=== PATIENT | female | born 1990 | race Caucasian/White ===

== ENCOUNTER 2019-02-13 06:50 | Inpatient (IN) | payer OTHER ==
[2019-02-13] VITALS (15 sets, daily range): BP systolic 88–117; BP diastolic 50–83
[~2019-02-13] VITALS: Ht 152.4 cm; Wt 53.8 kg
[~2019-02-13 06:50] MED LIST: IBUPROFEN600 MG ORAL; ROXICODONE5 MG ORAL
[2019-02-13] MEDS ORDERED: Vancomycin 1gm/D5W 275ml IVPB ONE ×2 (07:00)
[2019-02-13] MEDS ORDERED: ceFAZolin sod 2 GM in D5W 110 ML IVPB SCH (07:00)
--- NOTE | 2019-02-13 07:19 | Pre-Procedure Note/Attestation ---
Pre-Procedure Note/Attestation Complete Prior to Procedure Planned Procedure: not applicable Procedure Narrative: L5S1 Anterior lumbar interbody fusion with bone morphogenetic protein and allograft Indications for Procedure Pre-Operative Diagnosis: L5S1 herniation Attestation I attest that I discussed the nature of the procedure; its benefits; risks and complications; and alternatives (and the risks and benefits of such alternatives ), prior to the procedure, with the patient (or the patient's legal abrasives sales representative). I attest that, if there was a reasonable possibility of needing a blood transfusion, the patient (or the patient's legal abrasives sales representative) was given the [facility] standardized written summary, pursuant to the [place] Blood Safety Act ([place] Health and Safety Code # 1645, as amended). I attest that I re-evaluated the patient just prior to the surgery and that there has been no change in the patient's H&P, except as documented below: Stalin Raya MD Feb 13, 2019 07:19
--- NOTE | 2019-02-13 07:20 | Brief Operative Note ---
Immediate Post Operative Note Operative Note Chief Complaint: back pain and radiculopathy Pre-op Diagnosis: L5S1 herniation Procedure: L5S1 Anterior lumbar interbody fusion with bone morphogenetic protein and allograft Post-op Diagnosis: same as pre-op Findings: consistent w/pre-op dx studies Surgeon: Dorota Final Inspector: Sonya Additional Surgeons: Daniel Anesthesiologist: CATHI Anesthesia: general Specimen: none Complications: none Condition: stable Fluids: ivf Estimated Blood Loss: minimal Drains: none Implant(s) used?: Yes - Nuvasive Brigade [id number] Stalin Raya MD Feb 13, 2019 07:20
[2019-02-13] MEDS ORDERED: HYDROcodone/Acetamin 7.5/325 tab ORAL PRN (07:30)
[2019-02-13] MEDS ORDERED: Morphine Sulfate 2mg/ml Inj(IV/IM USE ONLY) IV PRN (07:30)
[2019-02-13] MEDS ORDERED: HYDROcodone/Acetamin 5/325 tab ORAL PRN (07:30)
[2019-02-13] MEDS ORDERED: Metoclopramide 10mg/2ml Inj IVP PRN ×2 (07:30→10:30)
[2019-02-13] MEDS ORDERED: Naloxone 0.4mg/ml Inj IVP PRN (07:30)
[2019-02-13] MEDS ORDERED: Milk of Magnesia 30ml Ud ORAL PRN (07:30)
[2019-02-13] MEDS ORDERED: CRANBERRY200 M1 PO (07:43)
[2019-02-13] MEDS ORDERED: FIBER GUMMIES1 EACH PO (07:43)
[2019-02-13] MEDS ORDERED: Midazolam 2mg/2ml Inj ONE (08:16)
[2019-02-13] MEDS ORDERED: fentaNYL 100 mcg/2 mL IV ONE (08:16)
[2019-02-13] MEDS ORDERED: Lidocaine 1% MPF 10mg/ml 5ml ONE (08:25)
[2019-02-13] MEDS ORDERED: Heparin 5000 units/ml inj SUBQ ONE (09:00)
[2019-02-13] MEDS ORDERED: Thrombin 5000 units TOPIC ONE (09:00)
[2019-02-13] MEDS ORDERED: Gelfoam Size TOPIC ONE (09:00)
[2019-02-13] MEDS ORDERED: Bacitracin 50000 Units Vial IRRIG ONE (09:00)
[2019-02-13] MEDS ORDERED: Propofol 200mg/20ml IV ONE (09:12)
[2019-02-13] MEDS ORDERED: LR 1000ml ONE (10:04)
[2019-02-13] MEDS ORDERED: NS 500ML ONE (10:04)
[2019-02-13] MEDS ORDERED: NS Irrig 1000ml ONE (10:04)
[2019-02-13] MEDS ORDERED: Sterile Water Irrig 1000ml IRRIG ONE (10:04)
--- NOTE | 2019-02-13 10:23 | Anethesia Preoperative Eval ---
Anesthesia Pre-op PMH/ROS General Date of Evaluation: Feb 13, 2019 Time of Evaluation: 09:15 Anesthesiologist: Sheila ASA Score: ASA 2 Mallampati Score Class I : Soft palate, uvula, fauces, pillars visible Class II: Soft palate, uvula, fauces visible Class III: Soft palate, base of uvula visible Class IV: Only hard plate visible Mallampati Classification: Class II Surgeon: Dorota Diagnosis: Lumbar radiculopathy Surgical Procedure: Anterior discectomy fusion L5-S1 Anesthesia History: none Family History: no anesthesia problems Allergies: Coded Allergies: PENICILLINS (Verified Allergy, Severe, 02/13/19) LIPS SWELL UP, GETS BUMPS ON THE HANDS Medications: see eMAR Patient NPO?: Yes NPO Date: Feb 12, 2019 NPO Time: 2100 Past Medical History Cardiovascular: Denies: HTN, CAD, TN, valve dz, arrhythmia, other Pulmonary: Denies: asthma, COPD, PETRA, other Gastrointestinal/Genitourinary: Reports: GERD - mildf; Denies: CRI, ESRD, other Neurologic/Psychiatric: Reports: depression/anxiety, other - chronic pain; Denies: dementia, CVA, TIA Endocrine: Denies: DM, hypothyroidism, steroids, other HEENT: Denies: cataract (L), cataract (R), glaucoma, AFOGNAK (L), AFOGNAK (R), other Hematology/Immune: Denies: anemia, DVT, bleeding disorder, other Musculoskeletal/Integumentary: Denies: OA, RA, DJD, DDD, edema, other PMH Narrative: as above PSxH Narrative: Epidural injections , lumbar discogram Anesthesia Pre-op Phys. Exam Physician Exam Last Vital Signs Date Time Temp Pulse Resp B/P (MAP) Pulse Ox O2 Delivery O2 Flow Rate FiO2 02/13/19 07:24 Room Air 02/13/19 07:23 97.2 58 18 95/62 (73) 99 Constitutional: NAD Neurologic: CN 2-12 intact Cardiovascular: RRR, no M/R/G Respiratory: CTA Gastrointestinal: S/NT/ND Airway Exam Mallampati Score: Class II MO: full Neck: flexible ROM: full Teeth: intact Dentures: no upper, no lower Anesthesia Pre-op A/P Labs see chart Urine Test Test 02/13/19 07:00 Urine HCG, Qualitative Negative (NEGATIVE) Studies Pre-op Studies: EKG - NSR Risk Assessment & Plan Assessment: ASA 2 Plan: GA with ETT Status Change Before Surgery: No Pre-Antibiotics Drug: Vancomycin 500 mg Given Within 1 Hr of Incision: Yes Time Given: 10:12 Rj Sosa MD Feb 13, 2019 10:23
[2019-02-13] MEDS ORDERED: LR 1000ml 1,000 ML IVLG SCH (10:24)
[2019-02-13] MEDS ORDERED: DiphenhydrAMINE 50mg/ml Inj IVP PRN (10:30)
[2019-02-13] MEDS ORDERED: Hydromorphone 0.5mg/0.5ml inj IVP PRN (10:30)
[2019-02-13] MEDS ORDERED: Acetaminophen (Non formulary) 100 ML IV ONE (10:30)
[2019-02-13] MEDS ORDERED: Meperidine 50mg/ml Inj(FOR RIGORS ONLY) IV PRN (10:30)
[2019-02-13] MEDS ORDERED: Ketorolac 30mg Inj IV PRN (10:30)
[2019-02-13] MEDS ORDERED: Bupivacaine w/Epi 0.5% 30ml Vial INJ ONE (11:00)
[2019-02-13] MEDS ORDERED: Glycopyrrolate 0.2mg/ml 1ml Vial ONE (11:21)
[2019-02-13] MEDS ORDERED: Ketorolac 30mg Inj ONE (11:21)
--- NOTE | 2019-02-13 12:02 | Immediate Post-Op Evaluation ---
Immediate Post-Op Evalulation Immediate Post-Op Evalulation Procedure: L5-S1 anterior discectomy interbody fusion Date of Evaluation: Feb 13, 2019 Time of Evaluation: 12:01 IV Fluids: 1000 Blood Products: n0ne Estimated Blood Loss: 50 Urinary Output: 100 Blood Pressure Systolic: 98 Blood Pressure Diastolic: 53 Pulse Rate: 92 Respiratory Rate: 20 O2 Sat by Pulse Oximetry: 98 Temperature (Fahrenheit): 97.5 Pain Score (1-10): 2 Nausea: No Vomiting: No Complications none Patient Status: reacts, patent, extubated, none Hydration Status: adequate Rj Sosa MD Feb 13, 2019 12:02
[2019-02-13] MEDS: Midazolam 2mg/2ml Inj IVP PRN ×2 (12:11→12:46)
--- NOTE | 2019-02-13 12:42 | Diagnostic Imaging Report ---
INDICATION: Pain, intraoperative TECHNIQUE: Intraoperative imaging Fluoroscopy time: 17 seconds Total dose: 0.31504 mGym2 Total number of images: 3 COMPARISON: None FINDINGS: Intraoperative images document surgical tools projected anterior to what are presumably L3, L5, and L5-S1 disc. Subsequent images document anterior fusion at L5-S1 IMPRESSION: Intraoperative imaging, as described
--- NOTE | 2019-02-13 13:50 | NUR ---
NURSE NOTES: REC'D FROM PACU SP ALIF L5-S1 WITH ALLOGRAFT. AWAKE/ALERT. IV INFUSING. V/S TAKEN. PAIN SCALE 6/10. ABDOMINAL DRESSING DRY AND INTACT ICE PACOK ON. ABLE TO MOVE BOTH BLE AND BUE. NO NUMBNESS/TINGLING BLE AND BOTH HANDS. IN NO DISTRESS.
[2019-02-13] MEDS ORDERED: Chloraseptic Spray 20mL Bottle ORAL PRN (14:02)
[2019-02-13] MEDS: Morphine Sulfate 4mg/ml Inj (IV USE ONLY) IV PRN ×2 (14:30→20:44)
[2019-02-13] MEDS: NS w/KCl 20mEq 1000ml 1,000 ML IV SCH (14:48)
[2019-02-13] MEDS ORDERED: LR 1000ml IV ONE (16:00)
[2019-02-13] MEDS ORDERED: LR 1000ml 1,000 ML IV SCH (16:00)
--- NOTE | 2019-02-13 16:20 | NUR ---
NURSE NOTES: DR Lenora JAMES NOTIFIED OF PT BACK FROM SURGERY. MADE AWARE OF THE BP 88/57. LR BOLUS INFUSING PER DR KERR ORDER.
--- NOTE | 2019-02-13 17:00 | Operative Note - Dictated ---
DATE OF OPERATION: 02/13/2019 SURGEONS: 1. Nas Hassan M.D. (for the approach). 2. Stalin Raya M.D. (for the spine procedure). ANESTHESIOLOGIST: Rj Sosa M.D. ANESTHESIA: General endotracheal. PREOPERATIVE DIAGNOSIS: Disk disease at L5-S1 (1 interspace). POSTOPERATIVE DIAGNOSIS: Disk disease at L5-S1 (1 interspace). OPERATIVE PROCEDURE: 1. Muscle sparing, anterior abdominal extraperitoneal approach for anterior lumbar interbody fusion of L5-S1 (1 interspace). 2. Mobilization of left iliac artery. 3. Mobilization of left iliac vein. 4. Exposure of the anterior surface of the spine at L5-S1 (1 interspace). INFORMED CONSENT: The procedure of anterior access for an anterior lumbar interbody fusion was explained in detail to the patient preoperatively via the phone and then repeated in the preoperative holding area on the day of surgery by Dr. Raya and myself. The risks including hemorrhage, infection, vascular injury, ureteral injury, visceral injury, nerve injury, and lymphedema were explained in detail to the patient. The patient stated that she understood the procedure, its rationale and risks. She stated that she had no further questions and accepted the procedures outlined above. Background information, indications for surgery, description of operative findings and specimens removed will be contained in Dr. Raya's operative report. FINDINGS PERTINENT TO THE APPROACH: All retroperitoneal structures were normal. OPERATIVE PROCEDURE: The patient was brought to the operating room in stable condition. Monitoring was instituted with arterial line, ECG, O2 saturation monitor, and blood pressure cuff. A pulse oximeter was placed on the left foot to monitor circulation to the left lower extremity. The patient was induced with anesthesia without any difficulty. The patient was prepared and draped in sterile fashion. Using x-ray and fluoroscopy, the level of the L5-S1 disk was marked on the skin. A left lower quadrant transverse incision was performed from the midline to the edge of the rectus muscle starting approximately one-third of the way between the pubis and umbilicus. The incision was carried down through the subcutaneous tissue to the rectus fascia. The rectus fascia was incised with cautery with extension into the fibers of the external oblique aponeurosis. Elevation of the rectus fascia away from the anterior surface of the muscle was carried out for approximately 5 centimeters, both cephalad and caudad. This allowed for retraction of the rectus muscle both medially and laterally to obtain direct A-P access to the spine. The inferior epigastric vessels were identified and preserved. The transversalis fascia was entered exposing the retroperitoneum. The peritoneum was bluntly dissected away from the undersurface of the internal oblique muscle. Careful blunt dissection was used to elevate the peritoneum anteriorly until the psoas muscle was identified. The ureter was also identified and swept upwards with the peritoneum and its contents. Further dissection was used to expose the anterior surface of the left common iliac artery. A Cline retractor was placed into the retroperitoneum, lateral to the rectus muscle. A lap sponge was inserted over the psoas muscle and pushed superiorly to keep the abdominal contents out of the way with a [place] retractor. Careful sharp and blunt dissection was used to expose the entire length of the common iliac artery to its origin at the aortic bifurcation. Dissection along the medial wall of the artery was carried out to expose the left common iliac vein, which lies under and slightly to the right of the artery. With extreme care, the vein was exposed in its entirety and deep dissection carried out to expose the L5-S1 disk space. The middle sacral vessels were carefully ligated and cauterized proximally and distally and transected. Any other venous tributaries in the area were controlled with clips and/or cautery and transected. Mobilization of the iliac vessels below the bifurcation was carried out for proper visualization of the anterior surface of the spine. This was done with careful blunt dissection to peel away the left common iliac vein from the anterior longitudinal ligament to which it was very closely approximated. This dissection along the anterior surface of the spine was carried out bluntly without the use of cautery to preserve the sympathetic plexus, which lies anteriorly overlying the aortic bifurcation and extends inferiorly towards the sacral hollow. After proper skeletonization and mobilization of the vessels and preservation of all vital structures, the Cline-Northfield retractor system was removed and a table held retractor system was deployed. The retractor blades were inserted with the rectus muscle now retracted laterally, first on the right to expose that side of the disk space and then on the left to keep the iliac vessels out of the way. A third retractor blade was placed inferiorly. The midline and the level was confirmed by placing a needle into the disk and using fluoroscopy. A 4th superior retractor blade was placed. This allowed complete exposure and direct A-P approach to the anterior surface of the spine at L5-S1. Dr. Raya proceeded to perform the diskectomy, partial vertebrectomy, and fusion using the appropriate technique and hardware. After the diskectomy, vertebrectomy, and fusion was completed, irrigation with antibiotic solution was carried out. Retractor blades were removed and the integrity of the iliac vessels was checked to make sure that there was no tear or thrombosis of the vein and that there was adequate flow through the artery, with no evidence of spasm or thrombosis. A further check for hemostasis was made and the integrity of the ureter was verified. The perineum was allowed to return to its normal anatomic position. The anterior rectus sheath was closed with a continuous suture of #1 Vicryl. A subcuticular/subdermal suture of continuous 2-0 Vicryl was used to approximate subcutaneous tissue and skin. Dermabond surgical adhesive and a sterile dressing was applied. Manual and visual sweeps were correct. Final sponge, needle, and instrument counts were verified as correct x2. Estimated blood loss from the procedure was minimal and approximately 15 mL. There were excellent dorsalis pedis and posterior tibial pulses in both feet. There was 100% oxygen saturation with a triphasic waveform on the left foot pulse oximeter, consistent with preoperative baseline. The patient was taken from the operating room to the recovery room in stable condition, awakening from anesthesia. Nas Hassan M.D. DR: EARNESTINE JOB#: [id number] CC: Stalin Raya M.D.; Fax#: [phone] [facility]
[2019-02-13] MEDS: HYDROmorphone 1mg/ml Carpuject IVP PRN ×2 (17:08→22:50)
[2019-02-13] MEDS: Docusate 100mg cap ORAL SCH (17:47)
[2019-02-13] MEDS: Docusate Sod/Senna tab ORAL SCH (17:47)
[2019-02-13] MEDS: Dexamethasone 4mg/ml vial IVP SCH (17:47)
--- NOTE | 2019-02-13 19:00 | NUR ---
NURSE NOTES: RESTING IN BED. IN NO APPARENT DISTRESS.
--- NOTE | 2019-02-13 19:33 | NUR ---
HAND-OFF: Report given to Cassia BENTON RN.
--- NOTE | 2019-02-13 19:35 | NUR ---
NURSE NOTES: Received report from Ciarra Gonsalez RN. Patient resting in bed. Alert, oriented. Family at bedside. Bed in low position, locked, side rails up x2, call light within reach. Abdominal dressing clean and intact. IV in L hand, patient complains of discomfort in L hand. IV site intact, no redness at site, patent and flowing well. Repositioned arm, elevated on pillow. Encouraged to call if discomfort continues.
--- NOTE | 2019-02-13 20:45 | Operative Note - Dictated ---
DATE OF OPERATION: 02/13/2019 SURGEON: Stalin Raya M.D., Orthopaedic Spine Surgeon. EXPOSURE SURGEON: Nas Hassan M.D. GM VIDEO SURGEON: García Sanchez M.D. ANESTHESIA: General endotracheal anesthesia. PREOPERATIVE DIAGNOSES: 1. Intractable back pain. 2. Intractable leg pain. 3. Worsening radiculopathy. 4. Weakness. 5. Herniated nucleus pulposus, L5-S1 herniation. 6. Neural foraminal stenosis, L5-S1 herniation. POSTOPERATIVE DIAGNOSES: 1. Intractable back pain. 2. Intractable leg pain. 3. Worsening radiculopathy. 4. Weakness. 5. Herniated nucleus pulposus, L5-S1 herniation. 6. Neural foraminal stenosis, L5-S1 herniation. PROCEDURES PERFORMED: 1. Radical anterior lumbar intervertebral L5-S1 discectomy. 2. Anterior lumbar interbody fusion using NuVasive Brigade PEEK cage size #12 mm height and bone morphogenetic protein with 5 mL of allograft [place] bone putty. 3. Anterior lumbar plating and fixation at L5-S1 using #4 screws, #2 screws were 25 mm and #2 screws were 27.5 mm. 4. Anterior retroperitoneal exposure. 5. Supervision and interpretation of intraoperative fluoroscopy. 6. Supervision and interpretation of somatosensory-evoked potential and free running EMG monitoring. ESTIMATED BLOOD LOSS: 150 mL. COMPLICATIONS: None. INDICATIONS FOR THE PROCEDURE: The patient is a 29-year-old female who presents for intractable back pain and radiculopathy, which is well documented in our clinical chart and records. We had a long discussion with Pepper regarding definitive surgical treatment options. We had a long discussion with the patient regarding the risks, alternatives, and benefits of procedure. Our description of the risks included a discussion in person as well as a signed consent, which detailed all pertinent risks and the procedure itself. Briefly, our discussion included but was not limited to infection, bleeding, pseudarthrosis, spinal cord injury, neurovascular injury, dural tear, CSF leak, neuropathy, paralysis, permanent weakness/drop foot, paresthesias, blindness, palsy, and weakness. The patient understood there may be a need for revision surgery or additional procedures. Approach-related complications including dysphonia, dysphagia, blindness, permanent vocal cord and neural injury, hematoma, swallowing and breathing difficulty; medical complications including liver, kidney, shock, and cardiopulmonary failure; anesthesia complications including , swelling, damage to the musculature, larynx, esophagus, trachea, blood vessels and muscles and lungs during this surgical procedure. Injury to deeper structures may be temporary or permanent. The patient understood these and elected to proceed. A written and verbal consent was given. We discussed the pros and cons of all the alternatives. We discussed the uncertainties associated with the decision. Afterwards I assessed the patients understanding and explored their preferences. All questions were answered and no guarantees were given. Medical clearance was obtained prior to surgery. INTRAOPERATIVE FINDINGS: At L5-S1, there was a tear noted in the posterior longitudinal ligament. This tear was approximately 35 degrees on the left margin of the PLL itself. Through this, there was noted the egress of nuclear tissue, which had migrated posteriorly and was removed carefully with a combination of Kerrison rongeurs and pituitaries until all the pressure on the posterior thecal sac and neural foramina was decompressed. The disc itself was collapsed. It had decreased nuclear tissue as I would usually expect in someone of this age, however, this was not present. There was a soft characteristic to the disc, which was not calcified, which would also be expected in a calcified disc with a degenerative process. The disc itself was removed with all pressure was removed posteriorly as well throughout the posterior remnants. DESCRIPTION OF PROCEDURE: Under the benefit of general endotracheal anesthesia and with the assistance of the entire operative team, the patient was moved from the [facility] onto the operative table in the supine position on a radiolucent frame. The head was secured and positioned appropriately. Bilateral arms were secured with Gel Pads and foam and all bony prominences were padded. The bilateral lower extremity SCD and NARESH hose were placed for DVT prophylaxis. A surgical timeout was called which corroborated our planned procedure. Preoperative antibiotics were administered within 30 minutes of the incision for prophylaxis. Using lateral radiography, the operative level was delineated. An incision was marked based on our interpretation of lateral radiography and afterwards the body was prepped and draped in the usual sterile manner. The family was notified that we were ready to commence surgery and were called in the waiting room hourly for updates. An incision was based on our lateral fluoroscopic image to center the incision at the L5-S1 interspace. The wound was prepped and draped in the usual sterile fashion. Using a scalpel, a standard retroperitoneal exposure was performed by our vascular surgeon, Dr. Nas Hassan, and this is delineated in a separate operative note. After appropriate exposure at the L5-S1 disc space, we next turned our attention towards our radical discectomy. This was performed in standard fashion first beginning with a gentle mobilization of all superficial soft tissue overlying the disc space with Kittners. After this was performed, we marked our midline and confirmed our disc space on AP and lateral fluoroscopy. Next, using a 10 blade long-handled scalpel, the disc was resected from the endplates in a box discectomy technique. Next, using Schwab elevators, the disc was mobilized off each endplate. After this, using a large [place]ell rongeurs, the entire disc was removed from the intervertebral space. All residual disc and cartilaginous endplates were resected using a combination of small and medium curettage, pituitaries, size 4 and size 6 Kerrison rongeurs. Next, the endplates were distracted in a parallel fashion using the [place]ino director of design and a 7.5 Thandle. At this point, the PLL was resected using a small curette and a Kerrison 4 rongeur. At L5-S1, there was a tear noted in the posterior longitudinal ligament. This tear was approximately 35 degrees on the left margin of the PLL itself. Through this, there was noted the egress of nuclear tissue, which had migrated posteriorly and was removed carefully with a combination of Kerrison rongeurs and pituitaries until all the pressure on the posterior thecal sac and neural foramina was decompressed. The disc itself was collapsed. It had decreased nuclear tissue as I would usually expect in someone of this age, however, this was not present. The disc itself was removed with all pressure was removed posteriorly as well throughout the posterior remnants.Next, the endplates were resected down to bleeding subchondral bone using a ring and box curette. For any residual bleeding which we encountered at this point, this was maintained and controlled with a combination of FloSeal, Gelfoam, and bipolar cautery. Afterwards, Tisseel was used to seal the discectomy site dorsally. Next, I then trialed the interspace for height, width, and depth. This was confirmed on fluoroscopy and once satisfied with our fit, we loaded and inserted a NuVasive Brigade PEEK cage size #12 mm height with bone morphogenetic protein and with 5 mL of allograft [place] bone putty under AP and lateral fluoroscopy. AP and lateral fluoroscopy confirmed excellent placement at the L5-S1 interspace. Afterwards, we turned our attention towards plating from the NuVasive Brigade Interlock system. This anterior lumbar plating and fixation at L5-S1 using #4 screws, #2 screws of 25 mm and #2 screws of 27.5 mm length. Final radiographs confirmed appropriate placement of all hardware, screws, and our PEEK cage along with a jewish of the lumbar lordosis. Afterwards, Tisseel was used to seal the discectomy site ventrally. FloSeal and Zosyn antibiotics were placed directly on the anterior fusion site. The wounds were copiously irrigated with antibiotic-impregnated saline. Afterwards, FloSeal was placed to address residual bleeding. Powdered antibiotics were directly poured into the wound to provide for direct antibiosis. Next, I turned my attention to closure. Fascial closure was performed with 1-0 Vicryl suture. Subcutaneous tissues were reapproximated with 2-0 Vicryl. The superficial subcutaneous skin was closed with a running Monocryl and Dermabond. Dressings consisted of Tegaderm and 4 x 4 gauze. The patient tolerated the procedure well. The details of the surgery were related to the patients family/representatives upon the conclusion of the procedure in the family waiting room. Stalin Raya M.D. DR: Carmen JOB#: [id number] CC: SALAZAR
--- NOTE | 2019-02-13 21:42 | Cardiology Progress Note ---
Assessment/Plan Assessment/Plan [id number] chronic low bp is on ivf already otherwise looks good tsh and cortisol ordered for am Objective Last 24 Hour Vital Signs Date Time Temp Pulse Resp B/P (MAP) Pulse Ox O2 Delivery O2 Flow Rate FiO2 02/13/19 17:38 97.4 02/13/19 17:00 68 117/66 (83) 02/13/19 15:30 97.4 64 20 88/57 (67) 02/13/19 15:30 69 20 98/59 (72) 02/13/19 14:30 97.5 61 18 90/53 (65) 100 02/13/19 13:50 97.4 81 20 105/69 (81) 100 02/13/19 13:50 Nasal Cannula 3.0 02/13/19 13:45 97.5 78 18 95/55 100 Nasal Cannula 3 02/13/19 13:30 72 15 90/58 100 Nasal Cannula 3 02/13/19 13:15 69 13 91/50 100 Nasal Cannula 3 02/13/19 13:00 75 15 105/66 100 Nasal Cannula 3 02/13/19 12:45 75 16 95/65 100 Nasal Cannula 3 02/13/19 12:38 97.9 02/13/19 12:38 97.9 02/13/19 12:38 97.9 02/13/19 12:38 97.9 02/13/19 12:30 69 15 92/62 100 Nasal Cannula 3 02/13/19 12:20 77 17 99/59 100 Simple Mask 6 02/13/19 12:10 79 18 92/50 100 Simple Mask 6 02/13/19 12:02 92 20 98 02/13/19 11:57 97.8 86 20 98/52 100 Simple Mask 6 02/13/19 07:24 Room Air 02/13/19 07:23 97.2 58 18 95/62 (73) 99 Laboratory Tests Test 02/13/19 07:00 Urine HCG, Qualitative Negative (NEGATIVE) Kam Phillips MD Feb 13, 2019 21:42
[2019-02-13] MEDS: Vancomycin 1 GM in D5W 275 ML IVPB SCH (22:49)
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
[2019-02-14] VITALS (8 sets, daily range): BP systolic 86–111; BP diastolic 46–78
[2019-02-14] MEDS: Dexamethasone 4mg/ml vial IVP SCH ×3 (00:15→12:03)
--- NOTE | 2019-02-14 00:30 | NUR ---
NURSE NOTES: Patient c/o throat discomfort, given lozenge as ordered. Patient was assisted to BSC several times this evening and did very well. Voided without difficulty and tolerated activity well.
[2019-02-14] MEDS: NS w/KCl 20mEq 1000ml 1,000 ML IV SCH ×4 (03:09→21:00)
[2019-02-14] MEDS: Morphine Sulfate 4mg/ml Inj (IV USE ONLY) IV PRN ×3 (03:10→11:34)
[2019-02-14] MEDS: HYDROmorphone 1mg/ml Carpuject IVP PRN (07:50)
--- NOTE | 2019-02-14 07:50 | NUR ---
NURSE NOTES: AWAKE/ALERT. PAIN SCALE 8/10. GIVEN DILAUDID 1MG IV FOR BREAKTHROUGH PAIN. ABDOMINAL DRESSING DRY AND INTACT. IN NO ACUTE DISTRESS.
--- NOTE | 2019-02-14 07:54 | NUR ---
NURSE NOTES: AWAKE/ALERT. CRYING. C/O PAIN. SCALE 8/10. GIVEN DILAUDID 1MG IV ORDERED. ABDOMINAL DRESSING DRT AND INTACT. STATES PASSED GAS. IN NO ACUTE DISTRESS.
--- NOTE | 2019-02-14 08:00 | NUR ---
HAND-OFF: Report given to Ciarra Gonsalez RN.
--- NOTE | 2019-02-14 08:24 | 48 Hour Post Anesthesia Eval ---
Post Anesthesia Evaluation Procedure: L5-S1 anterior discectomy interbody fusion Date of Evaluation: Feb 14, 2019 Blood Pressure Systolic: 101 0: 58 Pulse Rate: 51 Respiratory Rate: 19 Temperature (Fahrenheit): 97.9 O2 Sat by Pulse Oximetry: 99 Airway: patent Nausea: No Vomiting: No Pain Intensity: 3 Hydration Status: adequate Cardiopulmonary Status: at baseline Mental Status/LOC: patient returned to baseline Post-Anesthesia Complications: 0 Follow-up care needed: N/A - further care as per primary team Beba Choi MD Feb 14, 2019 08:24
[2019-02-14] MEDS: Docusate 100mg cap ORAL SCH ×2 (08:57→18:02)
[2019-02-14] MEDS: Docusate Sod/Senna tab ORAL SCH ×2 (08:57→18:02)
[2019-02-14] MEDS: Vancomycin 1 GM in D5W 275 ML IVPB SCH (10:27)
--- NOTE | 2019-02-14 11:41 | NUR ---
CASE MANAGEMENT:REVIEW 29 YR OLD MALE HERE FOR ELECTIVE SURGERY SI:: BACK PAIN AND RADICULOPATHY 97.2 58 18 95/62 99% RA IS: TO SURGERY FOR: ANTERIOR LUMBAR INTERBODY FUSION : TO MED/SURG 3 [facility] POST OP INTERQUAL CRITERIA MET 02/14/19 SI: POD #1 97.9 89 18 104/69 98% ON RA IS: IV DECADRON Q6HRS IVF+KCL@100/HR IV DILAUDID PRN : MED/SURG STATUS 3 [facility]
[2019-02-14] MEDS: HYDROcodone/Acetamin 7.5/325 tab ORAL PRN ×2 (14:02→19:59)
--- NOTE | 2019-02-14 15:37 | NUR ---
PT Note PT eval completed, treatment initiated. Patient was instructed on the importance of performing/observing proper log rolls and proper body mechanics to prevent lumbar strain. Patient needs PT to further instruct on proper body mechanics to improve safety in mobility. Addendum: 02/14/19 at 1538 by MICHAEL BLACKWELL PT Amended: Links added.
--- NOTE | 2019-02-14 16:11 | NUR ---
Charge nurse note: TSH 0.217 - Dr. Phillips notified, no new orders given.
--- NOTE | 2019-02-14 19:00 | NUR ---
NURSE NOTES: RESTING IN BED. IN NO DISTRESS.
[2019-02-14] MEDS ORDERED: LR 1000ml ONE (19:27)
[2019-02-14] MEDS ORDERED: Tubing IV Secondary IV ONE (19:27)
--- NOTE | 2019-02-14 19:44 | NUR ---
HAND-OFF: Report given to Cassia BENTON RN.
--- NOTE | 2019-02-14 19:45 | NUR ---
NURSE NOTES: Received report from EULOGIO Gonsalez. No distress noted, family visiting at bedside. bed in low position, locked, side rails up x3, call light within reach. Will continue to monitor.
--- NOTE | 2019-02-14 21:20 | NUR ---
NURSE NOTES: Patient ambulating in hallway with family, steady gait.
--- NOTE | 2019-02-14 21:28 | Cardiology Progress Note ---
Assessment/Plan Assessment/Plan hypotesnion chronic lumbar spine injury cortisol and tsh were abn will need to fu with pmd to tejeda and repeat testing pt informed she had bm is walking adn eating has some nausea likely related to pain meds dvt ppx Subjective Cardiovascular: Denies: chest pain, irregular heart rate, lightheadedness Respiratory: Denies: shortness of breath Gastrointestinal/Abdominal: Reports: abdominal pain Genitourinary: Denies: burning Objective Last 24 Hour Vital Signs Date Time Temp Pulse Resp B/P (MAP) Pulse Ox O2 Delivery O2 Flow Rate FiO2 02/14/19 16:00 97.6 72 18 97/61 (73) 96 02/14/19 14:32 97.9 02/14/19 12:04 97.9 02/14/19 12:00 97.3 85 18 100/54 (69) 98 85 02/14/19 09:00 Room Air 02/14/19 08:24 51 19 99 02/14/19 08:20 97.9 02/14/19 08:00 97.9 53 18 105/68 (80) 18 02/14/19 08:00 89 18 104/69 (81) 98 02/14/19 08:00 81 18 104/69 (81) 98 02/14/19 04:06 51 19 101/58 (72) 99 02/14/19 04:03 57 20 86/46 (59) 100 02/14/19 04:00 97.7 53 19 98/58 (71) 98 02/14/19 00:00 97.7 58 17 111/78 (89) 100 General Appearance: no apparent distress, alert Neck: supple Cardiovascular: normal rate, regular rhythm Respiratory/Chest: chest wall non-tender, lungs clear Abdomen: normal bowel sounds, soft Extremities: no swelling, other - pneumaotic stocking in place Intake and Output 02/13/19 02/14/19 18:59 06:59 Intake Total 1670 ml 1340 ml Output Total 750 ml Balance 920 ml 1340 ml Intake Oral 170 ml 240 ml IV Total 1500 ml 1100 ml Output Urine Total 700 ml Estimated Blood Loss 50 ml # Voids 1 5 Laboratory Tests Test 02/14/19 06:10 Thyroid Stimulating Hormone (TSH) 0.217 uiU/mL (0.358-3.740) Cortisol AM Sample < 1.0 UG/DL Kam Phillips MD Feb 14, 2019 21:28
[2019-02-15] VITALS: BP 120/70
--- NOTE | 2019-02-15 00:15 | NUR ---
NURSE NOTES: Patient was given Soma for pain 7/10, half hour later pain down to 6/10.
[2019-02-15] MEDS: NS w/KCl 20mEq 1000ml 1,000 ML IV SCH (00:45)
--- NOTE | 2019-02-15 00:51 | NUR ---
NURSE NOTES: Patient feeling better. Repositioned for comfort, likes to use icepacks on abdomen and back. Encouraged to call as needed. No complaints at this time.
[2019-02-15] MEDS: HYDROcodone/Acetamin 7.5/325 tab ORAL PRN (04:29)
[2019-02-15 04:35] VITALS: BP 117/66
[2019-02-15 04:45] VITALS: BP 106/77
[2019-02-15 04:50] VITALS: BP 106/76
--- NOTE | 2019-02-15 04:50 | NUR ---
NURSE NOTES: Patient called earlier for pain medication, was crying. Also needed assistance getting out of bed to bathroom. [place] uncomfortable in bed and complained of chest pressure. When further asked, pressure doesn't radiate, no SOB noted. VSS, good color, 02Sat 99%. Chest pressure resolved. Patient got out of bed without difficulty and walked to bathroom. No dizziness. Encouraged to call as needed. Will notify MD.
--- NOTE | 2019-02-15 05:29 | NUR ---
NURSE NOTES: Spoke with Dr Phillips and notified of patient's chest pressure, non radiating, self resolved, VSS. Received order for EKG this morning.
--- NOTE | 2019-02-15 07:45 | NUR ---
NURSE NOTES: Pt sitting up at edge of bed. Stated she had a bm last night. Bowel sounds active . Bandage dry and intact. No visible swelling or redness around site. Pt is ambulatory
--- NOTE | 2019-02-15 07:45 | NUR ---
HAND-OFF: Report given to EULOGIO Sprague.
[2019-02-15 08:00] VITALS: BP 96/63
[2019-02-15] MEDS: Docusate Sod/Senna tab ORAL SCH (08:38)
[2019-02-15] MEDS: Docusate 100mg cap ORAL SCH (08:38)
--- NOTE | 2019-02-15 12:49 | NUR ---
NURSE NOTES: Pt discharge provided with discharge packet. Pt received discharge , surgical instructions prior to surgery. Significant other and father are at bedside. Provided with frequently asked questions information after surgery. Pt is aware not to lift heavy objects, to pickle processor objects by bending knees, no pushing or pulling. Educated on splinting procedure for coughing . Removed IV , and name tag
--- NOTE | 2019-02-16 09:41 | Discharge Summary ---
Discharge Summary Discharge Summary _ DATE OF ADMISSION: 02/13/2019 DATE OF DISCHARGE: 02/15/2019 DISCHARGED BY: Dr. Stalin Raya CO-SURGEON: Dr. Nas Hassan WASTE COLLECTION DRIVER: Dr. Kam Phillips BRIEF HOSPITAL COURSE: Patient is a 29-year-old female, who presented for intractable pain with radiculopathy to L5-S1 herniation. She was admitted on 02/13/2019 and underwent L5-S1 anterior lumbar interbody fusion with bone morphogenic protein and allograft. Surgery was done with who performed anterior axis for anterior lumbar interbody fusion. She tolerated procedure well. Surgery was uneventful. Post-operatively, patient was admitted for post-op care and was followed by television service engineer. She was placed on SCDs for DVT prophylaxis and was encouraged use of incentive spirometer. Patient was given pain management. Blood pressure was chronically on the low side. She was stable cardiac turk. TSH and cortisol level were abnormal. She was advised to follow-up with PMD as outpatient for follow-up and repeat testing. She was seen by PT. Diet was advanced. Incision was clean, dry and intact. Patient was ambulating well with good pain control and was tolerating diet. She was hemodynamically stable. Patient was eventually cleared for discharge home. PREOPERATIVE DIAGNOSES: 1. Intractable back pain. 2. Intractable leg pain. 3. Worsening radiculopathy. 4. Weakness. 5. Herniated nucleus pulposus, L5-S1 herniation. 6. Neural foraminal stenosis, L5-S1 herniation. POSTOPERATIVE DIAGNOSES: 1. Intractable back pain. 2. Intractable leg pain. 3. Worsening radiculopathy. 4. Weakness. 5. Herniated nucleus pulposus, L5-S1 herniation. 6. Neural foraminal stenosis, L5-S1 herniation. PROCEDURES PERFORMED: 1. Radical anterior lumbar intervertebral L5-S1 discectomy. 2. Anterior lumbar interbody fusion using NuV[employer] Brigade PEEK cage size #12 mm height and bone morphogenetic protein with 5 mL of allograft Lluvia bone putty. 3. Anterior lumbar plating and fixation at L5-S1 using #4 screws, #2 screws were 25 mm and #2 screws were 27.5 mm. 4. Anterior retroperitoneal exposure. 5. Supervision and interpretation of intraoperative fluoroscopy. 6. Supervision and interpretation of somatosensory-evoked potential and free running EMG monitoring. (Refer to Operative Report) DISCHARGE DISPOSITION: Patient was discharged home. DISCHARGE MEDICATIONS: Refer to Medication Reconciliation Sheet. DISCHARGE INSTRUCTIONS: Post-op instructions given. Follow-up in a week. I have been assigned to complete a DC summary on this account, I was not involved with the patient's management.--MAYELIN Murillo Jacqueline Robles NP Feb 16, 2019 09:41
--- NOTE | 2019-02-16 15:56 | Cardiology Report ---
APPROVED REPORT EKG Measurement Heart [id number] Sinus bradycardia with sinus arrhythmia Low voltage QRS Borderline ECG
== END 2019-02-15 13:20 | disposition home or self-care (01) | DRG 460 ==
LOC: SDSOVERFLO 06:50 → 3E 14:01
PROC: 0SG30A0 Fusion of Lumbosacral Joint with Interbody Fusion Device, Anterior Approach, Anterior Column, Open Approach (ICD-10-PCS; principal; 2019-02-13 08:30)
PROC: 3E0U0GB Introduction of Recombinant Bone Morphogenetic Protein into Joints, Open Approach (ICD-10-PCS; principal; 2019-02-13 08:30)
PROC: 4A11X4G Monitoring of Peripheral Nervous Electrical Activity, Intraoperative, External Approach (ICD-10-PCS; principal; 2019-02-13 08:30)
PROC: 0ST40ZZ Resection of Lumbosacral Disc, Open Approach (ICD-10-PCS; principal; 2019-02-13 08:30)
DX: M51.17 Intervertebral disc disorders with radiculopathy, lumbosacral region (principal); M48.07 Spinal stenosis, lumbosacral region; I95.89 Other hypotension
CPT/HCPCS: 36415; 72020; 76000; 81025; 82533; 84439; 84443; 86850; 86900; 86901; 87081; 93005; 94003; 94150; C9399; J2250; J2405

== ENCOUNTER 2019-05-21 05:25 | Inpatient (IN) | payer OTHER ==
[~2019-05-21] VITALS: Ht 149.9 cm; Wt 47.5 kg
[2019-05-21] VITALS (19 sets, daily range): BP systolic 90–125; BP diastolic 59–86
[~2019-05-21 05:25] MED LIST changes: +CRANBERRY200 M1 PO; +FIBER GUMMIES1 EACH PO
[2019-05-21] MEDS ORDERED: LR 1000ml 1,000 ML IVLG SCH (06:27)
[2019-05-21] MEDS ORDERED: Hydromorphone 0.5mg/0.5ml inj IVP PRN (06:30)
[2019-05-21] MEDS ORDERED: Ketorolac 30mg Inj IV PRN ×2 (06:30)
[2019-05-21] MEDS ORDERED: DiphenhydrAMINE 50mg/ml Inj IVP PRN ×2 (06:30→18:45)
[2019-05-21] MEDS ORDERED: Meperidine 50mg/ml Inj(FOR RIGORS ONLY) IVP PRN (06:30)
[2019-05-21] MEDS ORDERED: oxyCODONE HCL/Acetaminophen 5/325mg ORAL PRN (06:30)
[2019-05-21] MEDS ORDERED: Midazolam 2mg/2ml Inj IVP PRN (06:30)
[2019-05-21] MEDS ORDERED: LORazepam Inj 2mg/ml 1ml IV PRN (06:30)
[2019-05-21] MEDS ORDERED: HYDROcodone/Acetamin 7.5/325 tab ORAL PRN ×3 (06:30→16:00)
[2019-05-21] MEDS ORDERED: Atropine Sulfate 0.4mg/ml inj IVP PRN (06:30)
[2019-05-21] MEDS ORDERED: HYDROcodone/Acetamin 5/325 tab ORAL PRN ×2 (06:30→16:00)
[2019-05-21] MEDS ORDERED: Acetaminophen (Non formulary) 100 ML IV ONE (06:30)
[2019-05-21] MEDS ORDERED: fentaNYL 100 mcg/2 mL IV PRN (06:30)
[2019-05-21] MEDS ORDERED: Labetalol 5mg/ml 20ml vial IV PRN (06:30)
[2019-05-21] MEDS ORDERED: Metoclopramide 10mg/2ml Inj IVP PRN ×2 (06:30→07:30)
--- NOTE | 2019-05-21 06:30 | Anethesia Preoperative Eval ---
Anesthesia Pre-op PMH/ROS General Date of Evaluation: May 21, 2019 Time of Evaluation: 07:01 Anesthesiologist: Guillaume ASA Score: ASA 1 Mallampati Score Class I : Soft palate, uvula, fauces, pillars visible Class II: Soft palate, uvula, fauces visible Class III: Soft palate, base of uvula visible Class IV: Only hard plate visible Mallampati Classification: Class I Surgeon: Dorota Diagnosis: Back Pain Surgical Procedure: ALIF L5-S1, PSF L5-S1 Anesthesia History: none Family History: no anesthesia problems Allergies: Coded Allergies: PENICILLINS (Verified Allergy, Severe, 02/13/19) LIPS SWELL UP, GETS BUMPS ON THE HANDS Medications: see eMAR Patient NPO?: Yes NPO Date: May 20, 2019 NPO Time: 2330 Past Medical History Gastrointestinal/Genitourinary: Reports: GERD Neurologic/Psychiatric: Reports: other - Migranes PSxH Narrative: L Spine Sx X2 Anesthesia Pre-op Phys. Exam Physician Exam Last Vital Signs Date Time Temp Pulse Resp B/P (MAP) Pulse Ox O2 Delivery O2 Flow Rate FiO2 05/21/19 06:26 Room Air 05/21/19 06:22 97.9 60 18 97/61 (73) 97 Constitutional: NAD Neurologic: CN 2-12 intact Cardiovascular: RRR Respiratory: CTA Gastrointestinal: S/NT/ND Airway Exam Mallampati Score: Class I MO: full ROM: full Teeth: intact Anesthesia Pre-op A/P Labs Urine Test Test 05/21/19 05:35 Urine HCG, Qualitative Negative (NEGATIVE) Risk Assessment & Plan Assessment: ASA 1 Plan: GA, GlideScope Go, SED Status Change Before Surgery: No Pre-Antibiotics Dru Grams Ancef IV Given Within 1 Hr of Incision: Yes Time Given: 07:26 Hank Galaviz MD May 21, 2019 06:30
[2019-05-21] MEDS ORDERED: OXYCONTIN10 MG ORAL (06:32)
[2019-05-21] MEDS ORDERED: CARISOPRODOL350 MG ORAL (06:32)
[2019-05-21] MEDS ORDERED: GABAPENTIN100 MG ORAL (06:32)
[2019-05-21] MEDS ORDERED: Rocuronium Bromide 50mg/5ml Inj IV ONE (06:33)
[2019-05-21] MEDS ORDERED: Sodium Chloride 10ml vial INJ ONE (06:54)
[2019-05-21] MEDS ORDERED: Lidocaine 1% MPF 10mg/ml 5ml ONE (06:54)
[2019-05-21] MEDS ORDERED: Dexamethasone 4mg/ml vial ONE (06:54)
[2019-05-21] MEDS ORDERED: Lidocaine 1% Plain 30 ml INJ ONE ×3 (06:56→12:01)
[2019-05-21] MEDS ORDERED: Neostigmine 1mg/ml 10ml Inj ONE (07:00)
[2019-05-21] MEDS ORDERED: Propofol 1,000mg/ 100ml btl IV ONE (07:00)
[2019-05-21] MEDS ORDERED: NS Irrig 1000ml ONE (07:00)
[2019-05-21] MEDS ORDERED: Sterile Water Irrig 1000ml IRRIG ONE (07:00)
[2019-05-21] MEDS ORDERED: LR 1000ml ONE (07:00)
[2019-05-21] MEDS ORDERED: Vancomycin 1gm vial IVPB ONE ×2 (07:06→07:08)
[2019-05-21] MEDS ORDERED: Thrombin 5000 units TOPIC ONE ×3 (07:07→09:22)
[2019-05-21] MEDS ORDERED: Heparin 5000 units/ml inj ONE (07:07)
[2019-05-21] MEDS ORDERED: Bacitracin 50000 Units Vial ONE (07:07)
[2019-05-21] MEDS ORDERED: Bupivacaine w/Epi 0.5% 30ml Vial INJ ONE ×2 (07:07→07:11)
[2019-05-21] MEDS ORDERED: Gelfoam Size TOPIC ONE ×2 (07:10→09:23)
[2019-05-21] MEDS ORDERED: Ropivacaine 5mg/ml Vial 30ml INJ ONE (07:11)
--- NOTE | 2019-05-21 07:20 | Pre-Procedure Note/Attestation ---
Pre-Procedure Note/Attestation Complete Prior to Procedure Planned Procedure: not applicable Procedure Narrative: Stage 1 Anterior Lumbar screw revision hardware removal L5S1, Stage 2 Bilateral posterior lucero laminectomy decompression pedicle screw fixation Indications for Procedure Pre-Operative Diagnosis: Persistent radicular pains, retained hardware, previous hnp and prior surgery Attestation I attest that I discussed the nature of the procedure; its benefits; risks and complications; and alternatives (and the risks and benefits of such alternatives ), prior to the procedure, with the patient (or the patient's legal insurance healthcare representative). I attest that, if there was a reasonable possibility of needing a blood transfusion, the patient (or the patient's legal insurance healthcare representative) was given the [place] Department [employer] standardized written summary, pursuant to the Fausto Allen Blood Safety Act ([place] Health and Safety Code # 1645, as amended). I attest that I re-evaluated the patient just prior to the surgery and that there has been no change in the patient's H&P, except as documented below: Stalin Raya MD May 21, 2019 07:20
--- NOTE | 2019-05-21 07:22 | Brief Operative Note ---
Immediate Post Operative Note Operative Note Chief Complaint: bilateral leg pains left more than right, back pain Pre-op Diagnosis: Persistent radicular pains, retained hardware, previous hnp and prior surgery Procedure: Stage 1 Anterior Lumbar screw revision hardware removal L5S1, Stage 2 Bilateral posterior lucero laminectomy decompression pedicle screw fixation Post-op Diagnosis: same as pre-op Findings: consistent w/pre-op dx studies Surgeon: Dorota Card Maker: Daniel Additional Surgeons: Exposure surgeon: Daniel Anesthesiologist: Guillaume Anesthesia: general Specimen: none Complications: none Condition: stable Fluids: IVF Estimated Blood Loss: minimal Drains: none Implant(s) used?: Yes - four screws 35mm synthes emergent Stalin Raya MD May 21, 2019 07:22
[2019-05-21] MEDS ORDERED: Chloraseptic Spray 20mL Bottle ORAL PRN (07:30)
--- NOTE | 2019-05-21 07:39 | Immediate Post-Op Evaluation ---
Immediate Post-Op Evalulation Immediate Post-Op Evalulation Procedure: ALIF L5-S1, PSF L5-S1 Date of Evaluation: May 21, 2019 Time of Evaluation: 13:25 IV Fluids: 1600 Blood Products: 0 Estimated Blood Loss: 150 Urinary Output: 600 Blood Pressure Systolic: 123 Blood Pressure Diastolic: 82 Pulse Rate: 103 Respiratory Rate: 18 O2 Sat by Pulse Oximetry: 100 Temperature (Fahrenheit): 98.2 Pain Score (1-10): 2 Nausea: No Vomiting: No Complications 0 Patient Status: awake, reacts, patent, extubated, none Hydration Status: adequate Dru Grams Ancef IV Given Within 1 Hr of Incision: Yes Time Given: 07:26 Hank Galaviz MD May 21, 2019 07:39
[2019-05-21] MEDS: Docusate 100mg cap ORAL SCH ×2 (09:00→18:11)
[2019-05-21] MEDS ORDERED: Vancomycin 1 GM in D5W 275 ML IV SCH (09:00)
[2019-05-21] MEDS ORDERED: Glycopyrrolate 0.2mg/ml 1ml Vial ONE (11:35)
[2019-05-21] MEDS ORDERED: fentaNYL 100 mcg/2 mL IV ONE ×2 (12:33→12:49)
--- NOTE | 2019-05-21 14:30 | NUR ---
NURSE NOTES: Patient arrived on unit via hospital bed. Stable. Complains of pain and is asking for pain medication, will administer pain medication as ordered. Patient oriented to room, call light, and unit. Boyfriend is at bedside. Surgical dressing soiled, intact. F/C patent and draining urine, patient does not complain of burning or discomfort. Patient encouraged to use call light for assistance, verbalized understanding. Patient is in bed in locked and lowest position with call light within reach. Will continue to monitor.
--- NOTE | 2019-05-21 15:20 | NUR ---
CASE MANAGEMENT: INITIAL REVIEW 29 YO F PRESENTED TO OUR ED FROM HOME CC: SURGERY SI:HERNIATED NUCLEUS PULPOSUS. T 97.9 HR 60 RR 18 B/P 97/61 SATS 97% ON RA LABS: HCG (-) IS: OR MEDS PATIENT ADMITTED TO MED/SURG 05/21/2019 @ 0722 DCP: PATIENT TO BE DISCHARGED TO HOME ONCE MEDICALLY CLEARED. PLAN OF CARE: Pre-op Diagnosis: Persistent radicular pains, retained hardware, previous hnp and prior surgery Procedure: Stage 1 Anterior Lumbar screw revision hardware removal L5S1, Stage 2 Bilateral posterior lucero laminectomy decompression pedicle screw fixation Post-op Diagnosis: same as pre-op
[2019-05-21] MEDS ORDERED: Morphine Sulfate 4mg/ml Inj (IV USE ONLY) IV PRN ×2 (16:00)
[2019-05-21] MEDS ORDERED: Milk of Magnesia 30ml Ud ORAL PRN (16:00)
[2019-05-21] MEDS ORDERED: Morphine Sulfate 2mg/ml Inj(IV/IM USE ONLY) IV PRN (16:00)
[2019-05-21] MEDS ORDERED: HYDROmorphone 1mg/ml Carpuject IVP PRN (16:00)
[2019-05-21] MEDS ORDERED: Naloxone 0.4mg/ml Inj IVP PRN ×2 (16:00→18:45)
[2019-05-21] MEDS: Dexamethasone 4mg/ml vial IVP SCH ×2 (16:23→21:56)
[2019-05-21] MEDS: NS w/KCl 20mEq 1000ml 1,000 ML IV SCH (16:23)
--- NOTE | 2019-05-21 16:45 | Operative Note - Dictated ---
DATE OF OPERATION: 05/21/2019 SURGEONS: 1. Nas Hassan M.D.(for the approach). 2. Dorota Gant M.D. (for the spine procedure). ANESTHESIOLOGIST: Hank Galaviz MD. ANESTHESIA: General endotracheal. PREOPERATIVE DIAGNOSES: 1. Retained hardware. 2. Bilateral sciatica. 3. Status post anterior lumbar interbody fusion for degenerative disk disease of L5-S1. POSTOPERATIVE DIAGNOSES: 1. Retained hardware. 2. Bilateral sciatica. 3. Status post anterior lumbar interbody fusion for degenerative disk disease of L5-S1. 4. Left femoral vein defect. OPERATIVE PROCEDURE: 1. Revision right ALIF approach for L5-S1 disk and hardware. 2. Removal of hardware. 3. Suture repair of left femoral vein. 4. Mobilization of left iliac artery. 5. Mobilization of left iliac vein. 6. Mobilization of right iliac artery and vein. 7. Exposure of the anterior surface of the spine at L5-S1 (one interspace). 8. MODIFIER 22 REVISION SURGERY INFORMED CONSENT: The procedure of revision anterior access with right approach to the L5-S1 disk hardware and removal of the retained hardware was explained in detail to the patient preoperatively by Dr. Raya and myself. The risks including hemorrhage, infection, vascular injury, ureteral injury, visceral injury, nerve injury, and lymphedema were explained in detail to the patient. In addition, the higher than usual risk of a vessel injury was explained to the patient due to her previous anterior lumbar interbody fusion and that there could be an injury and repair to the left iliac artery or vein was explained in detail. The patient also realized that if the situation became too dangerous that there was a potential for backing out without removal of the hardware. The patient stated that she understood the procedure, its rationale and risks. She stated that she had no further questions and accepted the procedures as outlined above. BACKGROUND INFORMATION: Indications for surgery, description of operative findings and specimens removed will be contained in Dr. Raya's operative report. FINDINGS PERTINENT TO THE APPROACH: The femoral artery and vein were encased in scar, especially on the left. They were markedly adherent to the anterior surface of the PEEK prosthesis from the previous surgery. This created a more difficult than usual and time-consuming situation to which a modifier 22 is appropriate. In exposing the far left screw there was a small opening made into the left femoral vein that required repair later. OPERATIVE PROCEDURE: The patient was brought to the operating room in stable condition. Monitoring was instituted with arterial line, ECG, O2 saturation monitor and blood pressure cuff. A pulse oximeter was placed on the left foot to monitor circulation to the left lower extremity. The patient was induced with anesthesia without any difficulty. The patient was prepared and draped in a sterile fashion. Using x-ray and fluoroscopy, the level of the L5-S1 disk hardware was marked on the skin. A right lower quadrant transverse incision was performed from the midline to the edge of the rectus muscle, approximately 1[address] between the pubis and umbilicus. The incision was carried down through the subcutaneous tissue to the rectus fascia. The rectus fascia was incised with the cautery with extension into the fibers of the external oblique aponeurosis. Elevation of the rectus fascia away from the anterior surface of the muscle was carried out for approximately 5 centimeters, both cephalad and caudad. This allowed for retraction of the rectus muscle both medially and laterally to obtain direct capital A-P access to the spine. The inferior epigastric vessels were identified and preserved. The transversalis fascia was entered exposing the retroperitoneum. The peritoneum was bluntly dissected away from the undersurface of the internal oblique muscle. Careful blunt dissection was used to elevate the peritoneum anteriorly until the psoas muscle was identified. The ureter was also identified and swept upwards with the peritoneum and its contents. Further dissection was used to expose the anterior surface of the right common iliac artery. A Cline retractor was placed into the retroperitoneum, lateral to the rectus muscle. A lap sponge was inserted over the psoas muscle and pushed superiorly to keep the abdominal contents out of the way with Chelsie retractor. Careful sharp and blunt dissection was used to expose the entire length of the common iliac artery to its origin at the aortic bifurcation. Dissection along the medial wall of the artery was carried out to expose the right common iliac vein, which lies under the right iliac artery. With extreme care, the vein was exposed in its entirety and deep dissection carried out to expose the L5-S1 disk space hardware. This required a great deal of sharp dissection due to the scarring and fibrous layer covering the disk interbody hardware. The middle sacral vessels were already ligated from the previous surgery. Any other venous or arterial branches in the area were controlled with clips and/or cautery and transected. Mobilization of the iliac vessels below the bifurcation was carried out sharply and slowly to visualize the anterior surface of the spine and the hardware. This was done with some blunt dissection and mostly sharp dissection to peel away the left common iliac vein from the anterior longitudinal ligament and disk hardware to which it was very closely adherent. The dissection along the anterior surface of the spine was carried out bluntly and sharply without the use of cautery to preserve the sympathetic plexus, which lies anteriorly overlying the aortic bifurcation and extends inferiorly toward the sacral hollow. After a great deal of sharp dissection, proper skeletonization and mobilization of the vessels and preservation of all vital structures, the Cline-[place] retractor combination was removed and the table held retractor system was deployed. It was noted that there was some bleeding from a defect in the left iliac vein. The area was packed with Gelfoam soaked in thrombin and a sponge in order to control any oozing. The retractor blades were inserted with the rectus muscle now retracted laterally, first on the left to expose that side of the disk and then on the right to keep the iliac vessels out of the way. A third retractor blade was placed inferiorly. A fourth superior retractor blade was not needed. This allowed complete exposure and direct A-P approach to the anterior surface of the spine at the L5-S1 hardware. With the far left screw exposed, Dr. Raya proceeded to remove the hardware. After the removal of the hardware was completed, attention was turned towards repairing the left iliac vein. Using 2 pledgetted 5-0 Prolene sutures, the defect in the vein was sutured closed. There was no significant bleeding and the area was packed with Gel-Foam soaked in thrombin and dry Gel-Foam, as well as, using FloSeal. The retractor blades were removed and the integrity of the iliac vessels was checked to make sure that there was no further tear or thrombosis of the vein and that there was adequate flow through the artery with no evidence of spasm or thrombosis. A further check for hemostasis was made and the integrity of the ureter was verified. The peritoneum was allowed to return to its normal anatomic position. The anterior rectus sheath was closed with a continuous suture of number 1 Vicryl. A subcuticular/subdermal suture of 2-0 Vicryl was used to approximate subcutaneous tissue and skin. Steri-Strips and a sterile dressing were applied. Manual and visual sweeps were correct. Final sponge, needle, and instrument counts were verified as correct x2. Estimated blood loss from the procedure was approximately 100 mL. There were excellent dorsalis pedis and posterior tibial pulses in both feet. There was 100% oxygen saturation with a triphasic waveform on the left foot pulse oximeter, consistent with the preoperative baseline. The patient remained in the operating room, under anesthesia, in stable condition and prepared for the posterior portion of the procedure. Nas Hassan M.D. DR: Kalin JOB#: [id number] CC: Stalin Raya M.D.; Fax#: [phone] MTDD
--- NOTE | 2019-05-21 17:25 | Diagnostic Imaging Report ---
INDICATION: Pain, intraoperative TECHNIQUE: Intraoperative imaging Fluoroscopy time: 17 seconds Total dose: 0.77601 mGym2 Total number of images: 4 COMPARISON: None FINDINGS: Intraoperative images demonstrate on initial image fusion hardware bridging what is presumably L5 and S1. There is an overlying surgical tool projecting over the L5-S1 disc. Subsequent images document placement of posterior fusion hardware bridging L5 and S1. IMPRESSION: Intraoperative imaging, as described
[2019-05-21] MEDS: Vancomycin 500mg/D5W 110ml IVPB SCH ×2 (18:14)
[2019-05-21] MEDS ORDERED: PCA HYDROmorphone 1mg/ml 30 ML IV PRN (18:45)
[2019-05-21] MEDS ORDERED: LORazepam 1mg tab ORAL PRN (18:45)
[2019-05-21] MEDS ORDERED: PCA Education Pamphlet MISC ONE (18:45)
[2019-05-21] MEDS ORDERED: Rate Change PCA 1 Each MISC PRN (18:45)
[2019-05-21] MEDS: PCA shift volume MISC SCH (19:00)
--- NOTE | 2019-05-21 19:01 | NUR ---
NURSE NOTES: Patient is in severe pain. TELESCOPE MAINTENANCE set up with charge nurse. Patient and patient's boyfriend made aware of how to use TELESCOPE MAINTENANCE. TELESCOPE MAINTENANCE pamphlet given to patient, read along pamphlet with patient's boyfriend, verbalized understanding.
--- NOTE | 2019-05-21 19:30 | NUR ---
HAND-OFF: Report given to Sherrill KRISHNAN. Patient is stable.
--- NOTE | 2019-05-21 19:45 | NUR ---
NURSE NOTES: Received report from EULOGIO Salguero. Patient alert, oriented, pain 7/10, states feeling better now that she has the PLC ENGINEER. Bed in low position, locked, side rails up x2, call light and PLC ENGINEER button within reach. Boyfriend at bedside, very supportive of care. Patient taking PO fluids, no nausea, no vomiting. Arenas catheter patent and intact. SCD's on. Will continue to monitor.
--- NOTE | 2019-05-21 21:17 | Cardiology Progress Note ---
Assessment/Plan Assessment/Plan full note dictated appear comfortable dvt ppx pain control ivf [id number] Objective Last 24 Hour Vital Signs Date Time Temp Pulse Resp B/P (MAP) Pulse Ox O2 Delivery O2 Flow Rate FiO2 05/21/19 19:30 97.3 18 108/59 (75) 98 05/21/19 16:00 97.3 20 102/73 (83) 96 05/21/19 15:00 97.9 80 18 90/60 (70) 94 05/21/19 14:35 97.8 91 14 115/72 100 Room Air 05/21/19 14:33 97.8 05/21/19 14:33 97.8 05/21/19 14:30 86 20 123/86 100 Room Air 05/21/19 14:25 97.8 05/21/19 14:15 87 14 105/70 100 Room Air 05/21/19 14:00 82 13 116/82 100 Room Air 05/21/19 13:45 72 13 122/74 100 Nasal Cannula 3 05/21/19 13:35 84 24 125/64 100 Nasal Cannula 3 05/21/19 13:25 80 13 119/72 100 Simple Mask 6 05/21/19 13:20 100 13 120/77 100 Simple Mask 6 05/21/19 13:15 103 18 100 05/21/19 13:14 98.2 105 23 123/82 100 Simple Mask 6 05/21/19 06:26 Room Air 05/21/19 06:22 97.9 60 18 97/61 (73) 97 Intake and Output 05/20/19 05/21/19 18:59 06:59 # Voids 1 Laboratory Tests Test 05/21/19 05:35 Urine HCG, Qualitative Negative (NEGATIVE) Kam Phillips MD May 21, 2019 21:17
[2019-05-22] VITALS (7 sets, daily range): BP systolic 98–124; BP diastolic 56–77
--- NOTE | 2019-05-22 00:30 | Operative Note - Dictated ---
DATE OF OPERATION: 05/21/2019 Stage 1 of 2. SURGEON: Stalin Raya M.D., Orthopaedic Spine Surgeon. EXPOSURE SURGEON: Nas Hassan M.D. PRINCIPAL AUTOMATION ENGINEER SURGEON: García Sanchez M.D. ANESTHESIOLOGIST: Hank Galaviz M.D. ANESTHESIA: General endotracheal anesthesia. PREOPERATIVE DIAGNOSES: 1. Intractable back pain. 2. Intractable leg pain bilateral Left >Right. 3. Worsening radiculopathy. 4. Weakness. 5. Herniated nucleus pulposus, L5-S1 herniation, retained hardware prior ALIF L5S1. 6. Neural foraminal stenosis, L5-S1 herniation. POSTOPERATIVE DIAGNOSES: 1. Intractable back pain. 2. Intractable leg pain bilateral Left >Right. 3. Worsening radiculopathy. 4. Weakness. 5. Herniated nucleus pulposus, L5-S1 herniation, retained hardware prior ALIF L5S1. 6. Neural foraminal stenosis, L5-S1 herniation. PROCEDURE PERFORMED: 1. Removal of left downgoing intervertebral cage screw, L5-S1 from left-sided standalone device, [employer]. 2. Anterior retroperitoneal exposure. 3. Supervision and interpretation of intraoperative fluoroscopy. 4. Supervision and interpretation of somatosensory-evoked potential and free-running EMG monitoring. ESTIMATED BLOOD LOSS: As recorded. COMPLICATIONS: None. INDICATIONS FOR THE PROCEDURE: The patient is a 29-year-old female, who presents for intractable back pain and bilateral leg radiculopathy left more than right sided which is well documented in our clinical chart and records. We had a long discussion with Pepper regarding definitive surgical treatment options. We had a long discussion with the patient regarding the risks, alternatives, and benefits of procedure. Our description of the risks included a discussion in person as well as a signed consent, which detailed all pertinent risks and the procedure itself. Briefly, our discussion included but was not limited to venous bleeding , blood clots, thrombus, infection, bleeding, pseudarthrosis, spinal cord injury, neurovascular injury, dural tear, CSF leak, neuropathy, paralysis, permanent weakness/drop foot, paresthesias, blindness, palsy, and weakness. The patient understood there may be a need for revision surgery or additional procedures. Approach-related complications including dysphonia, dysphagia, blindness, permanent vocal cord and neural injury, hematoma, swallowing and breathing difficulty; medical complications including liver, kidney, shock, and cardiopulmonary failure; anesthesia complications including , swelling, damage to the musculature, larynx , esophagus, trachea, blood vessels and muscles, and lungs during this surgical procedure. Injury to deeper structures may be temporary or permanent. The patient understood these and elected to proceed. A written and verbal consent was given. We discussed the pros and cons of all the alternatives. We discussed the uncertainties associated with the decision. Afterwards, I assessed the patients understanding and explored their preferences. All questions were answered and no guarantees were given. Medical clearance was obtained prior to surgery. INTRAOPERATIVE FINDINGS: There was residual scar tissue underlying the L5-S1 interspace including along the bifurcation. This was carefully mobilized , which exposed a small amount of bleeding which was addressed with suture and pledgets via approximation as notated in the vascular operative note. The downgoing screw on the left side, which was the standalone device of the Nu[employer] Brigade, was carefully removed with no difficulty otherwise. DESCRIPTION OF PROCEDURE: Under the benefit of general endotracheal anesthesia and with the assistance of the entire operative team, the patient was moved from the [facility] onto the operative table in the supine position on a radiolucent frame. The head was secured and positioned appropriately. Bilateral arms were secured with Gel Pads and foam and all bony prominences were padded. The bilateral lower extremity SCD and NARESH hose were placed for DVT prophylaxis. A surgical timeout was called which corroborated our planned procedure. Preoperative antibiotics were administered within 30 minutes of the incision for prophylaxis. Using lateral radiography, the operative levels were delineated. An incision was marked based on our interpretation of lateral radiography and afterwards the body was prepped and draped in the usual sterile manner. The family was notified that we were ready to commence surgery and were called in the waiting room hourly for updates. An incision was based on our lateral fluoroscopic image to center the incision at the L5-S1 interspace. The wound was prepped and draped in the usual sterile fashion. Using a scalpel, a standard retroperitoneal exposure was performed by our vascular surgeon, Dr. Nas Hassan and this is delineated in a separate operative note. The prior implants from Nu[employer] was visualized. All 4 screws were noted. The vasculature was carefully mobilized and bleeding was controlled with a combination of downgoing pressure and afterwards suture with pledgets, which was noted in the operative note. In the meantime, an angled screwdriver was used to resect and completely remove the downgoing screw from L5-S1 in the [employer] Brigade device. Retained hardware was carefully removed. The wounds were copiously irrigated with antibiotic-impregnated saline. Afterwards, FloSeal was placed to address residual bleeding. Powdered antibiotics were directly poured into the wound to provide for direct antibiosis. Next, I turned my attention to closure. Fascial closure was performed with 1-0 Vicryl suture. Subcutaneous tissues were reapproximated with 2-0 Vicryl. The superficial subcutaneous skin was closed with a running Monocryl and Dermabond. Dressings consisted of Tegaderm and 4 x 4 gauze. The patient tolerated the procedure well and after discussion with our vascular surgeon and our anesthesiologist, we made the determination to proceed with stage 2 of 2, our posterior-based approach. The details of stage 1 of the surgery were related to the patients family/representatives upon the conclusion of the procedure in the family waiting room. Stage 2 of 2. DATE OF OPERATION: 05/21/2019 SURGEON: Stalin Raya M.D., Orthopaedic Spine Surgeon. PRINCIPAL AUTOMATION ENGINEER SURGEON: Nas Hassan M.D. ANESTHESIA: General endotracheal anesthesia. PREOPERATIVE DIAGNOSES: 1. Intractable back pain. 2. Intractable leg pain. 3. Worsening radiculopathy. 4. Weakness. 5. Herniated nucleus pulposus, L5-S1 herniation. 6. Neural foraminal stenosis, L5-S1. POSTOPERATIVE DIAGNOSES: 1. Intractable back pain. 2. Intractable leg pain. 3. Worsening radiculopathy. 4. Weakness. 5. Herniated nucleus pulposus, L5-S1 herniation. 6. Neural foraminal stenosis, L5-S1. PROCEDURES PERFORMED: 1. Left and right sided Hodge laminectomy/Lopez-Gomez osteotomy, and complete facetectomy at L5-S1 bilateral. 2. L5-S1 posterolateral fusion using allograft bone, local autograft 3. Percutaneous pedicle screw fixation at L5-S1 using [employer] Emergent screws of 35 mm length of 6.5 mm diameter. 4. Confirmation of pedicle screws placement using neural monitoring. 5. Use of intraoperative microscope. 6. Supervision and interpretation of intraoperative fluoroscopy. 7. Supervision and interpretation of somatosensory-evoked potential and free-running EMG monitoring. 8. Plastics closure of a prior lower back tattoo ESTIMATED BLOOD LOSS: As recorded. COMPLICATIONS: None. INDICATIONS FOR THE PROCEDURE: The patient is a 29-year-old female who presents for stage 2 in regard to their intractable back pain and radiculopathy. This operative note details the second stage of our surgery. Prior to surgery, we had a long discussion with our anesthesiologist and our vascular surgeon Dr Hassan. The decision was made that it was safe to proceed with our posterior procedure as we had planned to address the right radiculopathy and left leg radiculopathy. We discussed the pros and cons of all the alternatives. We discussed the uncertainties associated with the decision. Afterwards, I assessed the patients understanding and explored their preferences. All questions were answered and no guarantees were given. This now delineates the second stage of the procedure. INTRAOPERATIVE FINDINGS: There was severe neural foraminal stenosis at L5-S1, which was worse on the left versus right side. This was completely resected without any complications. The pedicle screws were stimulated. DESCRIPTION OF PROCEDURE: Under the benefit of general endotracheal anesthesia and with the assistance of the entire operative team, the patient was moved from the radiolucent operative table in the prone position onto a Marvin frame. The head was secured and positioned appropriately. Bilateral arms were secured with Gel Pads and foam and all bony prominences were padded. The bilateral lower extremity SCD and NARESH hose were placed for DVT prophylaxis. A surgical timeout was called which corroborated our planned procedure. Preoperative antibiotics were administered within 30 minutes of the incision for prophylaxis. Using lateral radiography, the operative levels were delineated. An incision was marked based on our interpretation of anterior, posterior, and lateral radiography and afterwards the body was prepped and draped in the usual sterile manner. The family was notified that we were ready to commence surgery and were called in the waiting room hourly for updates. An incision was based on our anterior, posterior, and lateral fluoroscopic image to center the incision at the L5-S1 interspace. The wound was prepped and draped in the usual sterile fashion. Using a scalpel, a midline incision was made and the subcutaneous tissue was mobilized so that within the fascia, two Radha-based incisions were made, one incision on the left side focusing on her pedicle at L5-S1 through a percutaneous stab wound approach. All pedicles were cannulated in the exact same fashion for the level. This was performed in the following manner. The second incision was made slightly off midline and geared towards her L5-S1 interspace approached. Using Jamshidi needles under direct AP and lateral fluoroscopic visualization, I approached the L5-S1 pedicles with Jamshidi needles making sure to leave clearance along the medial pedicle boundary/wall, and next we advanced our bilateral pedicle screw entry points under AP and lateral fluoroscopy at both our pedicles bilaterally. Next, percutaneous screws were loaded on the right-hand side and on the contralateral side, left. Screws were inserted in percutaneous fashion and afterwards these screws were stimulated. Next, a nadia was lordosed and placed percutaneously through the incision. Next, we turned our attention to our Lopez-Gomez type osteotomy, facetectomy, and decompression. This was performed at each level in the exact same fashion. Based on AP and lateral fluoroscopy, we centered this incision over the facet joints at L5-S1 of the contralateral side. This was taken down through the skin and subcutaneous tissues until the overlying pars facet joints of L5-S1 were visualized under microscopic visualization. There was severe pressure on this neural foramina as palpated with the [employer] dental and a Bryant ball probe. The pars was then visualized on the contralateral side and this was carefully resected along with the lamina and superior articular process using a [employer] AM8 drill bit. This was completely resected using a Lopez-Gomez type osteotomy and medial laminar removal and facetectomy. There was a significant amount of bleeding, which we encountered at this point and this was maintained and controlled with a combination of FloSeal, Gelfoam, and bipolar cautery. After complete resection of the facet joints, we noticed the lateral thecal sac margin and the neural elements. Next, I turned my attention to the stimulation of pedicle screws. All pedicle screws were stimulated with somatosensory-evoked potentials ranging over 20 milliampere with no response. Afterwards, percutaneous rods from the Emergent pedicle screw system were inserted and placed percutaneously and locking caps were placed. Final radiographs confirmed appropriate placement of all hardware, screws, and our PEEK cages along with a pentecostal of the lumbar lordosis. The wounds were copiously irrigated with antibiotic-impregnated saline. Afterwards, FloSeal was placed to address residual bleeding. Powdered antibiotics were directly poured into the wound to provide for direct antibiosis. Next, I turned my attention to closure. Fascial closure was performed with 1-0 Vicryl suture. Plastics closure of a prior lower back tattoo was performed which took a considerable amount of time to line up the prior markings. Subcutaneous tissues were reapproximated with 2-0 Vicryl. The superficial subcutaneous skin was closed with a running Monocryl and Dermabond. Dressings consisted of Tegaderm and 4 x 4 gauze. The patient tolerated the procedure well and will now be admitted to the spine floor for further observation. The details of the entire surgery were related to the patients family/representatives upon the conclusion of the procedure in the family waiting room. Stalin aRya M.D. DR: Carmen JOB#: [id number] CC: SALAZAR
[2019-05-22] MEDS: NS w/KCl 20mEq 1000ml 1,000 ML IV SCH ×3 (01:15→18:27)
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
[2019-05-22] MEDS: Dexamethasone 4mg/ml vial IVP SCH ×2 (04:43→09:34)
[2019-05-22] MEDS: Vancomycin 500mg/D5W 110ml IVPB SCH ×2 (06:28)
[2019-05-22] MEDS: PCA shift volume MISC SCH ×2 (07:00→19:37)
--- NOTE | 2019-05-22 07:34 | NUR ---
HAND-OFF: Report given to EULOGIO Antonio. Rounds done, condition stable.
--- NOTE | 2019-05-22 07:46 | NUR ---
NURSE NOTES: PT AXOX4, CALM, RESTING IN BED. PT RATES PAIN 7/10, AND STATES MUCH RELIEF WITH FUEL OIL CLERK DILAUDID. RN EDUCATED ON PLAN FOR PHYSICAL THERAPY TODAY WITH POSSIBLE MILLS CATH D/C IF WALKING. MILLS CATH DRAINING CLEAR STRAW COLORED URINE BY GRAVITY. IN NO APPARENT DISTRESS AT THIS TIME. CALL LIGHT WITHIN REACH. WILL CONTINUE TO MONITOR.
--- NOTE | 2019-05-22 08:52 | 48 Hour Post Anesthesia Eval ---
Post Anesthesia Evaluation Procedure: ALIF L5-S1, PSF L5-S1 Date of Evaluation: May 22, 2019 Airway: patent Nausea: No Vomiting: No Hydration Status: adequate Cardiopulmonary Status: at [facility] Mental Status/LOC: patient returned to baseline Post-Anesthesia Complications: 0 Follow-up care needed: N/A - further care as per primary team Beba Choi MD May 22, 2019 08:52
[2019-05-22] MEDS: Docusate 100mg cap ORAL SCH ×2 (09:33→17:17)
--- NOTE | 2019-05-22 10:11 | General Surgery Progress Note ---
General Surgery-Progress Note Subjective Day of Surgery: 05/21/19 Reason for Consult POD 1 Eval Procedure Performed Stage 1 Anterior Lumbar screw revision hardware removal L5S1, Stage 2 Bilateral posterior lucero laminectomy decompression pedicle screw fixation Chief Complaint: Incisional back pain only Symptoms: improved, tolerating diet, passing flatus, pain decreased Additional Comments Notes complete resolution of right and left leg pains Objective Last 24 Hour Vital Signs Date Time Temp Pulse Resp B/P (MAP) Pulse Ox O2 Delivery O2 Flow Rate FiO2 05/22/19 08:00 70 21 97 05/22/19 08:00 98.3 70 21 113/57 (75) 97 05/22/19 04:09 81 21 100 05/22/19 04:00 98.2 81 21 102/62 (75) 100 05/22/19 00:00 78 19 100 05/22/19 00:00 98.9 78 19 98/62 (74) 100 05/21/19 22:11 99.0 83 20 99/62 (74) 100 05/21/19 22:11 83 20 100 05/21/19 21:35 90 19 99 05/21/19 21:35 90 19 100/62 (75) 99 05/21/19 21:00 98 Nasal Cannula 2.0 28 05/21/19 21:00 Nasal Cannula 2.0 05/21/19 20:30 99.0 88 22 105/66 (79) 99 05/21/19 20:30 88 22 99 05/21/19 20:00 78 18 106/60 (75) 98 05/21/19 20:00 77 21 98 05/21/19 19:51 77 21 99 05/21/19 19:45 99.0 77 21 106/59 (75) 99 05/21/19 19:30 97.3 18 108/59 (75) 98 05/21/19 16:00 97.3 20 102/73 (83) 96 05/21/19 15:00 97.9 80 18 90/60 (70) 94 05/21/19 14:35 97.8 91 14 115/72 100 Room Air 05/21/19 14:33 97.8 05/21/19 14:33 97.8 05/21/19 14:30 86 20 123/86 100 Room Air 05/21/19 14:25 97.8 05/21/19 14:15 87 14 105/70 100 Room Air 05/21/19 14:00 82 13 116/82 100 Room Air 05/21/19 13:45 72 13 122/74 100 Nasal Cannula 3 05/21/19 13:35 84 24 125/64 100 Nasal Cannula 3 05/21/19 13:25 80 13 119/72 100 Simple Mask 6 05/21/19 13:20 100 13 120/77 100 Simple Mask 6 05/21/19 13:15 103 18 100 05/21/19 13:14 98.2 105 23 123/82 100 Simple Mask 6 I&O Intake and Output 05/21/19 05/22/19 19:00 07:00 Intake Total 2400 ml 2750 ml Output Total 2450 ml 2175 ml Balance -50 ml 575 ml Intake Oral 500 ml 1650 ml IV Total 1900 ml 1100 ml Output Urine Total 2300 ml 2175 ml Peritoneal Dialysis UF 150 ml # Bowel Movements 1 Dressing: dry Wound: clean, dry, intact Drains: none Respiratory: clear Abdomen: soft, non-tender, non-distended Extremities: no edema, no tenderness, no cyanosis, pulses Assessment Post-op Diagnosis S/p retained hardware removal and posterior L5S1 lucero laminectomy pedicle screw fixation Plan Additional Comments CT abdomen and pelvis with contrast in am 10/16 to r/o IVC thrombus Once passes PT and CT has been obtained potentially may be cleared for discharge home Stalin Raya MD May 22, 2019 10:11
[2019-05-22] MEDS ORDERED: Omnipaque-300 100ml vial INJ PRN (10:15)
--- NOTE | 2019-05-22 10:40 | NUR ---
NURSE NOTES: DR KERR AT BEDSIDE WITH PLAN FOR DISCHARGE TOMORROW AFTER CT TOMORROW. MILLS DISCONTINUED ORDERED. PT WITH 1600CC STRAW COLORED URINE. PT WALKED WITH PHYSICAL THERAPY TODAY. PT EDUCATED ON FALL PRECAUTIONS AND CALL RN USING CALL LIGHT FOR ANY ASSIST AND DO NOT AMBULATE IF FEELING DIZZY, SOB, OR LIGHT-HEADED. PT VERBALIZED UNDERSTANDING. WILL CONTINUE TO MONITOR.
--- NOTE | 2019-05-22 11:09 | NUR ---
P.T Note: P.T evaluation completed and tx initiated per spinal protocol. Please refer to P.T evaluation for current functional status. Skilled P.T service is warranted to ensure compliance in spinal precautions and safety in functional mobilities/activities.
--- NOTE | 2019-05-22 14:26 | Cardiology Progress Note ---
Assessment/Plan Assessment/Plan 1. Nucleus pulposus herniation and radiculopathy. 2. History of vertigo. 3. Postoperative pain. doing well walked feels her leg are already better co swelling inthe post incision but ot my exam looked unremarkable no redness no swellign no draiage noted large tatoo lower back has pneumatic stocking inplace ate some had flatus but no bm will try mom once encouraged to ambulate home soon Subjective Cardiovascular: Denies: chest pain, lightheadedness, palpitations Respiratory: Denies: shortness of breath Gastrointestinal/Abdominal: Reports: abdominal pain, constipated Genitourinary: Denies: burning Objective Last 24 Hour Vital Signs Date Time Temp Pulse Resp B/P (MAP) Pulse Ox O2 Delivery O2 Flow Rate FiO2 05/22/19 12:00 92 21 97 05/22/19 12:00 97.3 65 19 107/56 (73) 99 05/22/19 09:00 Nasal Cannula 2.0 05/22/19 08:00 70 21 97 05/22/19 08:00 98.3 70 21 113/57 (75) 97 05/22/19 04:09 81 21 100 05/22/19 04:00 98.2 81 21 102/62 (75) 100 05/22/19 00:00 78 19 100 05/22/19 00:00 98.9 78 19 98/62 (74) 100 05/21/19 22:11 99.0 83 20 99/62 (74) 100 05/21/19 22:11 83 20 100 05/21/19 21:35 90 19 99 05/21/19 21:35 90 19 100/62 (75) 99 05/21/19 21:00 98 Nasal Cannula 2.0 28 05/21/19 21:00 Nasal Cannula 2.0 05/21/19 20:30 99.0 88 22 105/66 (79) 99 05/21/19 20:30 88 22 99 05/21/19 20:00 78 18 106/60 (75) 98 05/21/19 20:00 77 21 98 05/21/19 19:51 77 21 99 05/21/19 19:45 99.0 77 21 106/59 (75) 99 05/21/19 19:30 97.3 18 108/59 (75) 98 05/21/19 16:00 97.3 20 102/73 (83) 96 05/21/19 15:00 97.9 80 18 90/60 (70) 94 05/21/19 14:35 97.8 91 14 115/72 100 Room Air 05/21/19 14:33 97.8 05/21/19 14:33 97.8 05/21/19 14:30 86 20 123/86 100 Room Air 05/21/19 14:25 97.8 General Appearance: no apparent distress, alert Neck: supple Cardiovascular: normal rate Respiratory/Chest: lungs clear Abdomen: normal bowel sounds, soft Extremities: no swelling Intake and Output 05/21/19 05/22/19 19:00 07:00 Intake Total 2400 ml 2750 ml Output Total 2450 ml 2175 ml Balance -50 ml 575 ml Intake Oral 500 ml 1650 ml IV Total 1900 ml 1100 ml Output Urine Total 2300 ml 2175 ml Peritoneal Dialysis UF 150 ml # Bowel Movements 1 Kam Phillips MD May 22, 2019 14:25
[2019-05-22] MEDS ORDERED: Milk of Magnesia 30ml Ud ORAL SCH (14:45)
--- NOTE | 2019-05-22 19:41 | NUR ---
HAND-OFF: Report given to Gabrielle SIMPSON RN.
--- NOTE | 2019-05-22 22:59 | NUR ---
NURSE NOTES: Received report form EULOGIO Alonso. Patient is comfortable lying supine in bed. No c/o SOB on 2L nasal canula. IS at bedside. Horseshoe shaped swelling is on lower back with red ecchymosis on lower back and behind. Patient states "its from my heating pad and the surgery". Ice packs applied to both anterior abdomen and posterior back. Patient voided and had soft formed bowel movement and reports no difficulty. Anterior surgical dressing is c/d/i. CONSULTING SERVICES PROJECT MANAGER pump at bedside with remote in patient's hand. CONSULTING SERVICES PROJECT MANAGER settings checked and are correct per eMAR. Patient requests sleeping pill for insomnia and it will be given per eMAR. Will continue to monitor.
[2019-05-23] VITALS: BP 100/62
[2019-05-23 04:00] VITALS: BP 96/57
[2019-05-23] MEDS: NS w/KCl 20mEq 1000ml 1,000 ML IV SCH (04:31)
[2019-05-23] MEDS: PCA shift volume MISC SCH (07:00)
--- NOTE | 2019-05-23 07:15 | NUR ---
NURSE NOTES: HANDOFF RECEIVED FROM EULOGIO RICHARDSON. PATIENT OBSERVED RESTING IN BED, PATIENT HAS BEEN NPO SINCE MIDNIGHT FOR CT SCAN OF THE ABDOMEN. PATIENT VISIBLY UPSET, WANTING TO GO HOME. CT SCHEDULED FOR 0600 PATIENT VERBALIZED FRUSTRATION THAT SHE IS STILL WAITING AND WOULD LIKE SOMETHING TO DRINK. PATIENT HAS PCS PUMP FOR DILAUDID PAIN MANAGEMENT. IV SITE IS CLEAN DRY AND INTACT. DRESSING ON THE ABDOMEN IS CLEAN DRY AND INTACT, BACK SURGICAL SITE IS GLUED, NO BLEEDING NOTED, SITE IS SWOLLEN, TOLD THAT THE DR IS AWARE. WILL CONTINUE TO MONITOR PATIENT.
--- NOTE | 2019-05-23 07:59 | NUR ---
HAND-OFF: Report given to Elton Szymanski RN. Patient in stable condition.
[2019-05-23 08:00] VITALS: BP 107/68
[2019-05-23] MEDS: Docusate 100mg cap ORAL SCH (09:14)
[2019-05-23 09:55] LABS: BLOOD UREA NITROGEN 5 mg/dL (7-18)
[2019-05-23 10:01] LABS: CREATININE 0.6 MG/DL (0.55-1.30)
--- NOTE | 2019-05-23 10:49 | NUR ---
CT abd/pelvis with completed.
[2019-05-23 12:00] VITALS: BP 107/69
--- NOTE | 2019-05-23 12:15 | Diagnostic Imaging Report ---
Clinical Indication: Abdominal pain, status post anterior lumbar hardware removal and posterior fusion surgery, for evaluation of the inferior vena cava Technique: No oral contrast utilized. IV administration nonionic contrast. Venous phase spiral acquisition obtained through the abdomen and pelvis. Multiplanar reconstructions were generated. Total dose length product mGycm. CTDIvol(s) mGy. Dose reduction achieved using automated exposure control Comparison: none Findings: There is posterior fusion hardware in the lumbosacral spine bridging L5 and S1. The left S1 screw protrude slightly beyond the anterior sacral cortex. The remaining screws are entirely intraosseous. There is anterior fusion hardware at the same level. There is retained air from the surgical exposure and postoperative edema posteriorly. No discrete rim-enhancing collections to suggest abscess are demonstrated, although evaluation is limited due to the streak artifact thrown off by the hardware. There is also fairly extensive presacral edema. There is a bubbly gas collection, the cephalad extent of which is located immediately anterior to the L5-S1 disc, which extends caudad anterior to the sacrum. This appears to be separate from bowel, and the inferior aspect there is an of a somewhat well-defined rim. This measures 4.4 cm AP by 2.4 cm transverse by approximately 6 cm craniocaudad. Some gas bubbles are seen in the anterior abdominal wall, presumably retained air from the surgical exposure. The inferior vena cava and iliac veins are well-opacified. They are patent, normal in caliber, without filling defects or other findings to suggest thrombosis. The aorta and proximal branches are likewise unremarkable. The liver, gallbladder, bile ducts, pancreas, spleen, adrenals, kidneys are unremarkable. No retroperitoneal or mesenteric mass or adenopathy. No pelvic mass or adenopathy. There is what appears to be a collapsed right ovarian cyst. Prominent follicle is seen in the left ovary. There is a 2.4 x 1.4 cm fluid collection within or adjacent to the vagina, may reflect retained intravaginal fluid or more likely vaginal wall cyst. The included lung bases are clear. The bones are unremarkable aside from the postsurgical changes described above. Impression: Postsurgical changes, as described 4.4 x 2.4 x 6 cm gas collection with visible rim anterior to the lumbosacral junction extending to the pelvis, as described. Given history of recent surgery, most likely represents retained postsurgical retained gas. However, the possibility of a postsurgical abscess should also be considered in view of the visible enhancing rim Patent inferior vena cava and iliac veins, no evidence of thrombosis Evidence of a collapsed right ovarian cyst 2.4 x 1.4 cm fluid collection within or adjacent to the vagina, most likely a vaginal wall cyst The CT scanner at [facility] is accredited by the [employer] and the scans are performed using protocols designed to limit radiation exposure to as low as reasonably achievable to attain images of sufficient resolution adequate for diagnostic evaluation.
[2019-05-23 13:31] VITALS: BP 88/53
--- NOTE | 2019-05-23 14:00 | NUR ---
NURSE NOTES: DR KERR CALLED TO CHECK THE RESULTS OF THE CT SCAN. TOLD THERE WAS NO SIGN OF THROMBUS. DOCTOR GAVE DISCHARGE ORDER FOR PATIENT.
--- NOTE | 2019-05-23 15:40 | NUR ---
NURSE NOTES: PATIENT DISCHARGED IN STABLE CONDITION. PATIENT ALERT AND ORIENTED X4 AND ABLE TO MAKE NEEDS KNOWN. PATIENT SIGNED THE DISCHARGE PAPER WORK AND BELONGINGS LIST. IV SITE REMOVED, SMALL AMOUNT OF BLEEDING OCCURRED, APPLIED PRESSURE UNTIL BLEEDING STOPPED AND APPLIED GAUZE, NO SWELLING OR HEMATOMA NOTED. PATIENT HAD A PRESCRIPTION FOR [facility], BUT WANTED OXYCODONE, CALLED DR KERR TO TELL HIM OF PATIENTS REQUEST. PATIENT STATED THAT [facility] GIVES HER INSOMNIA. DR KERR AGREED TO CHANGE PRESCRIPTION AND EXPRESSED THAT PATIENT WILL HAVE TO CHARGE ATTENDANT THE PRESCRIPTION FROM HIS OFFICE. I GAVE THE PATIENT'S THE ADDRESS TO THE DOCS. EDUCATED PATIENT ON SIGNS TO BE ALERT FOR SUCH BLEEDING; FOUL SMELLING DISCHARGE, FEVER ABOVE 101, SWELLING ETC TO COME BACK TO THE HOSPITAL. ID BRACELET REMOVED. PATIENT LEFT WITH IN A PRIVATE CAR. I ESCORTED PATIENT TO THE CAR.
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
== END 2019-05-23 15:30 | disposition home or self-care (01) | DRG 460 ==
LOC: SDSOVERFLO 05:25 → 3E 14:53
PROC: 0QP004Z Removal of Internal Fixation Device from Lumbar Vertebra, Open Approach (ICD-10-PCS; principal; 2019-05-21 07:00)
PROC: 0QB00ZZ Excision of Lumbar Vertebra, Open Approach (ICD-10-PCS; principal; 2019-05-21 07:00)
PROC: 01NB0ZZ Release Lumbar Nerve, Open Approach (ICD-10-PCS; principal; 2019-05-21 07:00)
PROC: 01NR0ZZ Release Sacral Nerve, Open Approach (ICD-10-PCS; principal; 2019-05-21 07:00)
PROC: 0SG3071 Fusion of Lumbosacral Joint with Autologous Tissue Substitute, Posterior Approach, Posterior Column, Open Approach (ICD-10-PCS; principal; 2019-05-21 07:00)
PROC: 0QB10ZZ Excision of Sacrum, Open Approach (ICD-10-PCS; principal; 2019-05-21 07:00)
DX: M51.17 Intervertebral disc disorders with radiculopathy, lumbosacral region (principal); M48.07 Spinal stenosis, lumbosacral region; Z98.1 Arthrodesis status; V89.2XXS Person injured in unspecified motor-vehicle accident, traffic, sequela; Z88.0 Allergy status to penicillin; F17.200 Nicotine dependence, unspecified, uncomplicated; H81.10 Benign paroxysmal vertigo, unspecified ear; Y83.8 Other surgical procedures as the cause of abnormal reaction of the patient, or of later complication, without mention of misadventure at the time of the procedure; G89.18 Other acute postprocedural pain
CPT/HCPCS: 36415; 72020; 74177; 76000; 81025; 82565; 84520; 86850; 86900; 86901; 87081; 94003; 94150; J2405; J2710